=== PATIENT | female | born 1995 | race Caucasian/White ===

== ENCOUNTER 2017-12-27 22:59 | Emergency (ER) | payer OTHER ==
[~2017-12-27] VITALS: Ht 152.4 cm; Wt 39.5 kg
[2017-12-27 23:01] VITALS: BP 136/85
[2017-12-28] MEDS ORDERED: gentamicin 0.3% ophthalmic drops 5ML EACHEYE ONE (00:10)
== END 2017-12-28 00:22 | disposition home or self-care (01) ==
LOC: ER 22:59
DX: H10.9 Unspecified conjunctivitis (principal)
CPT/HCPCS: 99282

== ENCOUNTER 2020-10-08 12:13 | Emergency (ER) | payer BC, OTHER ==
[~2020-10-08] VITALS: Ht 152.4 cm; Wt 39.1 kg
[2020-10-08 12:20] VITALS: BP 116/84
[2020-10-08] MEDS ORDERED: DIPH25CA83 PO (12:53)
[2020-10-08] MEDS ORDERED: POLOS EACHEYE (12:53)
[2020-10-08] MEDS ORDERED: PRED20TA PO (12:53)
== END 2020-10-08 13:15 | disposition home or self-care (01) ==
LOC: EEVIPCON 12:17 → ER 12:17
DX: H10.9 Unspecified conjunctivitis (principal)
CPT/HCPCS: 99283